=== PATIENT | female | born 1970 | race Caucasian/White ===

== ENCOUNTER 2018-02-20 15:47 | Emergency (ER) | payer OTHER ==
[~2018-02-20] VITALS: Ht 172.7 cm; Wt 71.5 kg
[2018-02-20 16:28] LABS: HEMATOCRIT 40.6 % (36.0-46.0); MCHC 34.5 G/DL (30.0-36.0); MCV 86.9 FL (83-99); PLATELET COUNT 178 K/uL (156-360); RBC DIS.WIDTH-CV 11.8 % (11.8-14.6); RBC DIS.WIDTH-SD 37.4 % (39-53); RED BLOOD COUNT 4.67 M/uL (3.80-5.20); WHITE BLOOD COUNT 6.4 K/uL (4.1-10.2)
[2018-02-20 16:37] LABS: CHLORIDE 106 mEq/L (99-109); POTASSIUM 4.7 mEq/L (3.7-5.4); SODIUM 139 mEq/L (136-147)
[2018-02-20 16:38] LABS: GLUCOSE 87 mg/dL (70-99)
[2018-02-20 16:39] LABS: D-DIMER ELISA < 150.00 ng/mLDDU (<230)
[2018-02-20 16:42] LABS: CREATININE 0.9 mg/dL (0.6-1.3); GFR ESTIMATE (CALCULATED) > 59 mL/min/
[2018-02-20 16:43] LABS: UREA NITROGEN (BUN) 11 mg/dL (9-23)
[2018-02-20 16:51] LABS: TROP-I INTERPRETATION NEGATIVE; TROPONIN-I < 0.01 ng/mL (0.0-0.30)
[2018-02-20 17:32] LABS: QUANTITATIVE HCG < 4.0 MIU/ML
[2018-02-20 20:10] LABS: TROP-I INTERPRETATION NEGATIVE; TROPONIN-I < 0.01 ng/mL (0.0-0.30)
[2018-02-20 20:33] VITALS: BP 122/83
== END 2018-02-20 20:35 | disposition home or self-care (01) ==
LOC: EME 15:47
PROVIDERS: Physician Assistant Medical
DX: R07.9 Chest pain, unspecified (principal); E06.3 Autoimmune thyroiditis; R06.2 Wheezing
CPT/HCPCS: 71046; 80048; 84484; 84702; 85027; 85379; 93005; 94640; 99281; 99285